=== PATIENT | male | born 1995 | race African-American/Black ===

== ENCOUNTER 2020-05-01 23:05 | Emergency (ER) | payer OTHER ==
[2020-05-01 23:18] VITALS: BP 130/77; PULSE 98; RESP 20; TEMP 98.2
[2020-05-01] MEDS ORDERED: LORazepam 1 MG TAB PO STA (23:59)
--- NOTE | 2020-05-02 00:39 | XR ---
EXAMINATION TYPE: XR chest 2V DATE OF EXAM: 05/02/2020 COMPARISON: NONE HISTORY: Chest pain TECHNIQUE: 2 views FINDINGS: Heart and mediastinum are normal. Lungs are clear. Diaphragm is normal. Bony thorax appears normal. IMPRESSION: Normal chest.
[2020-05-02 00:50] LABS: Amphetamine Screen,Urine Detected (NotDetected); Barbiturate Screen,Urine Not Detected (NotDetected); Benzodiazepines Screen,Urine Not Detected (NotDetected); Cocaine Screen,Urine Not Detected (NotDetected); Methadone Screen, Urine Not Detected (NotDetected); Opiate Screen,Urine Not Detected (NotDetected); Oxycodone Screen, Urine Not Detected (NotDetected); Phencyclidine Screen,Urine Not Detected (NotDetected); Tricyclic Antidepressant,Urine Not Detected (NotDetected); Urn Cannabinoid Scrn Not Detected (NotDetected)
--- NOTE | 2020-05-02 01:03 | ED ---
General Adult HPI - General Chief complaint: Arrhythmia/Palpitations Stated complaint: Palpitations Time Seen by Provider: 05/01/20 23:29 Source: patient Mode of arrival: ambulatory Limitations: no limitations - History of Present Illness Initial comments: 24-year-old male patient presents to the emergency department today for evaluation of palpitations, racing heart, increased anxiety. Patient states symptoms started a few hours ago and have been constant. States he has been having episodes like this with increasing frequency since starting Adderall in December. Patient states he is having some mild left-sided chest pain does not radiate through to his back. Denies any shortness of breath, cough, or congestion. Denies dizziness or weakness. Denies numbness or tingling to his extremities. Patient has not been evaluated by his doctor for this. States he has previously taken Zoloft in the past but didn't feel like it helped him so he stopped taking it. Denies any alcohol or drug use. Patient denies any recent rash, fever, chills, abdominal pain, nausea, vomiting, diarrhea, constipation, back pain, hematuria, dysuria, urinary urgency, urinary frequency, headache, visual changes, or any other complaints. - Related Data Allergies Allergy/AdvReac Type Severity Reaction Status Date / Time No Known Allergies Allergy Verified 05/01/20 23:18 Review of Systems ROS Statement: Those systems with pertinent positive or pertinent negative responses have been documented in the HPI. ROS Other: All systems not noted in ROS Statement are negative. Past Medical History Past Medical History: No Reported History History of Any Multi-Drug Resistant Organisms: None Reported Past Surgical History: No Surgical Hx Reported Past Psychological History: ADD/ADHD Smoking Status: Never smoker Past Alcohol Use History: None Reported Past Drug Use History: None Reported General Exam Limitations: no limitations General appearance: alert, in no apparent distress, other (This is a well- developed, well-nourished adult male patient in no acute distress. Vital signs upon presentation are temperature 98.2F, pulse 98, respirations 20, blood pressure 130/77, pulse ox 98% on room air.) Eye exam: Present: normal appearance, PERRL, EOMI. Absent: scleral icterus, conjunctival injection, periorbital swelling ENT exam: Present: normal exam, normal oropharynx, mucous membranes moist Respiratory exam: Present: normal lung sounds bilaterally. Absent: respiratory distress, wheezes, rales, rhonchi, stridor Cardiovascular Exam: Present: regular rate, normal rhythm, normal heart sounds. Absent: systolic murmur, diastolic murmur, rubs, gallop, clicks GI/Abdominal exam: Present: soft, normal bowel sounds. Absent: distended, tenderness, guarding, rebound, rigid Neurological exam: Present: alert, oriented X3, CN II-XII intact Psychiatric exam: Present: anxious. Absent: homicidal ideation, suicidal ideation Skin exam: Present: warm, dry, intact, normal color. Absent: rash Course Vital Signs 05/01/20 23:14 Temperature 98.2 F Pulse Rate 98 Respiratory 20 Rate Blood Pressure 130/77 O2 Sat by Pulse 98 Oximetry EKG Findings - EKG Comments: EKG Findings:: EKG obtained at 2323 shows normal sinus rhythm with a ventricular rate of 96, ME interval 132, QRS duration 84, QT 350, QTC 442. No evidence of ST elevation or depression. Medical Decision Making - Medical Decision Making 24-year-old male patient presented to the emergency department today for evaluation of racing heart and increased anxiety. Physical examination is unremarkable. Heart sounds are normal. Patient's EKG showed sinus rhythm with a rate in the 90s. Patient states he was having the symptoms during the time of the EKG. Believes his symptoms may be related to starting Adderall in December. Chest x-ray is unremarkable. I did discuss findings and results with the patient and his mother. We did discuss anxiety as a possible cause for his symptoms though he is instructed to follow-up with his primary care physician for further testing and possible Holter monitoring. Return parameters were discussed in detail. He verbalizes understanding and agrees with this plan. Case discussed with my attending Dr. Bowden. - Lab Data Lab Results 05/02/20 Range/Units 00:29 Urine Opiates Screen Not Detected (NotDetected) Ur Oxycodone Screen Not Detected (NotDetected) Urine Methadone Screen Not Detected (NotDetected) Ur Propoxyphene Screen Not Detected (NotDetected) Ur Barbiturates Screen Not Detected (NotDetected) U Tricyclic Antidepress Not Detected (NotDetected) Ur Phencyclidine Scrn Not Detected (NotDetected) Ur Amphetamines Screen Detected H (NotDetected) U Methamphetamines Scrn Not Detected (NotDetected) U Benzodiazepines Scrn Not Detected (NotDetected) Urine Cocaine Screen Not Detected (NotDetected) U Marijuana (THC) Screen Not Detected (NotDetected) - Radiology Data Radiology results: report reviewed, image reviewed Two-view x-ray of the chest is obtained. Report is reviewed in its entirety. Impression by Dr. Kapoor shows normal chest. Disposition Clinical Impression: Palpitations, Anxiety Disposition: HOME SELF-CARE Condition: Good Instructions (If sedation given, give patient instructions): Heart Palpitations (ED), Anxiety (ED) Additional Instructions: Follow-up with her primary care physician for recheck in 1-2 days. Discuss possible heart monitoring and possible medication for anxiety. Return to the emergency department for any new, worsening, or concerning symptoms. Is patient prescribed a controlled substance at d/c from ED?: No Referrals: Arthur Hernandez MD [Primary Care Provider] - 1-2 days Time of Disposition: 01:03
== END 2020-05-02 01:11 | disposition home or self-care (01) ==
LOC: EC 23:05
DX: R00.2 Palpitations (principal); F41.9 Anxiety disorder, unspecified
CPT/HCPCS: 71046; 80306; 93005; 99285

== ENCOUNTER 2020-05-03 12:50 | Emergency (ER) | payer OTHER ==
[2020-05-03 13:00] VITALS: BP 121/69; PULSE 97; RESP 18; TEMP 98.7
[2020-05-03] MEDS ORDERED: LORazepam 1 MG TAB PO STA (13:18)
--- NOTE | 2020-05-03 13:42 | ED ---
General Adult HPI - General Chief complaint: Arrhythmia/Palpitations Stated complaint: revisit - anxiety, palpitations Time Seen by Provider: 05/03/20 13:00 Source: patient, RN notes reviewed, old records reviewed Mode of arrival: ambulatory Limitations: no limitations - History of Present Illness Initial comments: This is a 24-year-old who presents emergency Department stating he is having some anxiety again per patient states she was here yesterday. Patient states he was given some medicine in the ER and that seemed to relax him. Patient states he feels like his chest starts to flutter when he gets anxious. Patient denies any difficulty breathing shortest breath per patient denies any chest chest pain. Patient denies any fever chills or cough. Patient states he has an appointment tomorrow with his primary medical care doctor to get some antianxiety medicine. - Related Data Allergies Allergy/AdvReac Type Severity Reaction Status Date / Time No Known Allergies Allergy Verified 05/03/20 13:00 Review of Systems ROS Statement: Those systems with pertinent positive or pertinent negative responses have been documented in the HPI. ROS Other: All systems not noted in ROS Statement are negative. Past Medical History Past Medical History: No Reported History History of Any Multi-Drug Resistant Organisms: None Reported Past Surgical History: No Surgical Hx Reported Past Psychological History: ADD/ADHD, Anxiety Smoking Status: Never smoker Past Alcohol Use History: None Reported Past Drug Use History: None Reported General Exam - General Exam Comments Initial Comments: GENERAL: Patient is well-developed and well-nourished. Patient is nontoxic and well- hydrated and is in no acute distress. ENT: Neck is soft and supple. No significant lymphadenopathy is noted. Oropharynx is clear. Moist mucous membranes. Neck has full range of motion without eliciting any pain. EYES: The sclera were anicteric and conjunctiva were pink and moist. Extraocular move ments were intact and pupils were equal round and reactive to light. Eyelids were unremarkable. PULMONARY: Unlabored respirations. Good breath sounds bilaterally. CARDIOVASCULAR: There is a regular rate and rhythm ABDOMEN: Soft and nontender with normal bowel sounds. SKIN: Skin is clear with no lesions or rashes and otherwise unremarkable. NEUROLOGIC: Patient is alert and oriented x3. Cranial nerves II through XII are grossly intact. Motor and sensory are also intact. Normal speech, volume and content. Symmetrical smile. MUSCULOSKELETAL: Normal extremities with adequate strength and full range of motion. LYMPHATICS: No significant lymphadenopathy is noted PSYCHIATRIC: Patient is anxious Limitations: no limitations Course Vital Signs 05/03/20 12:58 Temperature 98.7 F Pulse Rate 97 Respiratory 18 Rate Blood Pressure 121/69 O2 Sat by Pulse 99 Oximetry Medical Decision Making - Medical Decision Making Patient was given Ativan in the emergency department. Disposition Clinical Impression: Anxiety Disposition: HOME SELF-CARE Instructions (If sedation given, give patient instructions): Anxiety (ED) Is patient prescribed a controlled substance at d/c from ED?: No Referrals: Arthur Hernandez MD [Primary Care Provider] - 1-2 days Time of Disposition: 13:41
== END 2020-05-03 13:49 | disposition home or self-care (01) ==
LOC: EC 12:50
DX: F41.9 Anxiety disorder, unspecified (principal)
CPT/HCPCS: 99284

== ENCOUNTER 2020-10-16 14:18 | Emergency (ER) | payer OTHER ==
[2020-10-16 14:29] VITALS: BP 122/84; PULSE 98; RESP 20; TEMP 98.3
[2020-10-16] MEDS ORDERED: LORazepam 2 MG/ML INJ IV STA (15:29)
[2020-10-16] MEDS ORDERED: SODIUM CHLORIDE 0.9% 1,000 ML IV ONE (15:29)
[2020-10-16 15:51] LABS: Basophils % (A) 1 %; Eosinophils # (A) 0.2 k/uL (0-0.7); Eosinophils % (A) 2 %; HCT 46.4 % (39.0-53.0); HGB 15.5 gm/dL (13.0-17.5); Lymphocytes # (A) 2.3 k/uL (1.0-4.8); Lymphocytes % (A) 28 %; MCH 30.6 pg (25.0-35.0); MCHC 33.4 g/dL (31.0-37.0); MCV 91.6 fL (80.0-100.0); Mean Platelet Volume 6.8; Monocytes # (A) 0.5 k/uL (0-1.0); Monocytes % (A) 6 %; Neutrophils # (A) 5.1 k/uL (1.3-7.7); Neutrophils % (A) 62 %; Platelet Count 298 k/uL (150-450); RBC 5.07 m/uL (4.30-5.90); RDW 13.1 % (11.5-15.5); WBC 8.2 k/uL (3.8-10.6)
[2020-10-16 16:10] LABS: ALT 12 U/L (4-49); AST 21 U/L (17-59); African American GFR (CKD) >90 (>60 ml/min/1.73 sqM); Albumin 4.7 g/dL (3.5-5.0); Alkaline Phosphatase 59 U/L (38-126); Anion Gap 9 mmol/L; Blood Urea Nitrogen 12 mg/dL (9-20); Calcium 9.6 mg/dL (8.4-10.2); Carbon Dioxide 26 mmol/L (22-30); Chloride 102 mmol/L (98-107); Glucose 118 mg/dL (74-99); Non-African American GFR(CKD) >90 (>60 ml/min/1.73 sqM); Potassium 3.9 mmol/L (3.5-5.1); Sodium 137 mmol/L (137-145); Total Bilirubin 0.3 mg/dL (0.2-1.3); Total Protein 7.2 g/dL (6.3-8.2)
--- NOTE | 2020-10-16 16:48 | ED ---
Arrhythmia/Palpitations HPI - General Chief Complaint: Arrhythmia/Palpitations Stated Complaint: Chest pain Time Seen by Provider: 10/16/20 14:58 Source: patient, RN notes reviewed Mode of arrival: wheelchair Limitations: no limitations - History of Present Illness Initial Comments: 24-year-old male presents emergency Department with chief complaint of palpitations. Patient has a history of this has been placed on propranolol. States symptoms have been more noticeable he does have mild discomfort at times but states it more feels that he is anxious, skipping beats. Patient has not seen cardiology. Patient states he had elevated heart rate noted on his watch up into the 200s. Patient has no current symptoms no other complaints. - Related Data Allergies Allergy/AdvReac Type Severity Reaction Status Date / Time No Known Allergies Allergy Verified 10/16/20 14:29 Review of Systems ROS Statement: Those systems with pertinent positive or pertinent negative responses have been documented in the HPI. ROS Other: All systems not noted in ROS Statement are negative. Past Medical History Past Medical History: No Reported History History of Any Multi-Drug Resistant Organisms: None Reported Past Surgical History: No Surgical Hx Reported Past Psychological History: ADD/ADHD, Anxiety Smoking Status: Never smoker Past Alcohol Use History: None Reported Past Drug Use History: None Reported General Exam Limitations: no limitations General appearance: alert, in no apparent distress Head exam: Present: atraumatic, normocephalic, normal inspection Neck exam: Present: normal inspection. Absent: tenderness, meningismus, lymp hadenopathy Respiratory exam: Present: normal lung sounds bilaterally. Absent: respiratory distress, wheezes, rales, rhonchi, stridor Cardiovascular Exam: Present: regular rate, normal rhythm, normal heart sounds. Absent: systolic murmur, diastolic murmur, rubs, gallop, clicks GI/Abdominal exam: Present: soft, normal bowel sounds. Absent: distended, tenderness, guarding, rebound, rigid Neurological exam: Present: alert, oriented X3, CN II-XII intact Skin exam: Present: warm, dry, intact, normal color. Absent: rash Course Vital Signs 10/16/20 14:25 Temperature 98.3 F Pulse Rate 98 Respiratory 20 Rate Blood Pressure 122/84 O2 Sat by Pulse 99 Oximetry Medical Decision Making - Medical Decision Making EKG and labs unremarkable. Patient discharged in stable condition with follow- up with cardiology return parameters were discussed. - Lab Data Result diagrams: 10/16/20 15:38 10/16/20 15:38 Lab Results 10/16/20 10/16/20 Range/Units 15:38 15:38 WBC 8.2 (3.8-10.6) k/uL RBC 5.07 (4.30-5.90) m/uL Hgb 15.5 (13.0-17.5) gm/dL Hct 46.4 (39.0-53.0) % MCV 91.6 (80.0-100.0) fL MCH 30.6 (25.0-35.0) pg MCHC 33.4 (31.0-37.0) g/dL RDW 13.1 (11.5-15.5) % Plt Count 298 (150-450) k/uL MPV 6.8 Neutrophils % 62 % Lymphocytes % 28 % Monocytes % 6 % Eosinophils % 2 % Basophils % 1 % Neutrophils # 5.1 (1.3-7.7) k/uL Lymphocytes # 2.3 (1.0-4.8) k/uL Monocytes # 0.5 (0-1.0) k/uL Eosinophils # 0.2 (0-0.7) k/uL Basophils # 0.0 (0-0.2) k/uL Sodium 137 (137-145) mmol/L Potassium 3.9 (3.5-5.1) mmol/L Chloride 102 (98-107) mmol/L Carbon Dioxide 26 (22-30) mmol/L Anion Gap 9 mmol/L BUN 12 (9-20) mg/dL Creatinine 0.77 (0.66-1.25) mg/dL Est GFR (CKD-EPI)AfAm >90 (>60 ml/min/1.73 sqM) Est GFR (CKD-EPI)NonAf >90 (>60 ml/min/1.73 sqM) Glucose 118 H (74-99) mg/dL Calcium 9.6 (8.4-10.2) mg/dL Total Bilirubin 0.3 (0.2-1.3) mg/dL AST 21 (17-59) U/L ALT 12 (4-49) U/L Alkaline Phosphatase 59 (38-126) U/L Total Protein 7.2 (6.3-8.2) g/dL Albumin 4.7 (3.5-5.0) g/dL TSH 1.170 (0.465-4.680) mIU/L Disposition Clinical Impression: Palpitations Disposition: HOME SELF-CARE Condition: Stable Instructions (If sedation given, give patient instructions): Heart Palpitations (ED) Additional Instructions: Please return to the Emergency Department if symptoms worsen or any other concerns. Is patient prescribed a controlled substance at d/c from ED?: No Referrals: Arthur Hernandez MD [Primary Care Provider] - 1-2 days Jay Jones MD [STAFF PHYSICIAN] - 1-2 days Time of Disposition: 16:48
== END 2020-10-16 17:15 | disposition home or self-care (01) ==
LOC: EC 14:18
DX: R00.2 Palpitations (principal)
CPT/HCPCS: 36415; 93005; 80053; 84443; 85025; 99285; 96374; 96361; J2060

== ENCOUNTER 2021-01-01 06:14 | Emergency (ER) | payer OTHER ==
[2021-01-01 06:21] VITALS: RESP 18; TEMP 98.7
[2021-01-01] MEDS ORDERED: LORazepam 1 MG TAB PO STA (06:46)
--- NOTE | 2021-01-01 06:49 | ED ---
General Adult HPI - General Chief complaint: Anxiety Stated complaint: Chest Pain Time Seen by Provider: 01/01/21 06:22 Source: patient Mode of arrival: ambulatory - History of Present Illness Initial comments: 25-year-old male presents to the emergency room for palpitations. Patient states he has been getting palpitations on and off for about a year now. Patient states his doctor did put him on propanolol but in no longer seems to be working. Patient states it worsened again this week. Patient questions if it is related to his stress and anxiety as a has been having lately. Patient has an appointment with cardiology on Sunday.Patient has no other complaints at this time including shortness of breath, chest pain, abdominal pain, nausea or vomiting, headache, or visual changes. - Related Data Allergies Allergy/AdvReac Type Severity Reaction Status Date / Time No Known Allergies Allergy Verified 01/01/21 06:21 Review of Systems ROS Statement: Those systems with pertinent positive or pertinent negative responses have been documented in the HPI. ROS Other: All systems not noted in ROS Statement are negative. Past Medical History Past Medical History: No Reported History History of Any Multi-Drug Resistant Organisms: None Reported Past Surgical History: No Surgical Hx Reported Past Psychological History: ADD/ADHD, Anxiety Smoking Status: Never smoker Past Alcohol Use History: None Reported Past Drug Use History: None Reported General Exam General appearance: alert, in no apparent distress Head exam: Present: atraumatic Eye exam: Present: normal appearance, PERRL, EOMI. Absent: scleral icterus, conjunctival injection ENT exam: Present: normal exam, mucous membranes moist Neck exam: Present: normal inspection, full ROM. Absent: tenderness Respiratory exam: Present: normal lung sounds bilaterally. Absent: respiratory distress, wheezes Cardiovascular Exam: Present: regular rate, normal rhythm, normal heart sounds GI/Abdominal exam: Present: soft, normal bowel sounds. Absent: distended, tenderness Neurological exam: Present: alert Psychiatric exam: Present: anxious Course Vital Signs 01/01/21 01/01/21 06:17 07:04 Temperature 98.7 F Pulse Rate 70 69 Respiratory 18 18 Rate Blood Pressure 116/70 O2 Sat by Pulse 99 99 Oximetry EKG Findings - EKG Comments: EKG Findings:: NSR, vent rate 72, pr int 130, qtc 442 Medical Decision Making - Medical Decision Making Vitals are stable. Patient is well appearing. Heart rhythm is regular on exam. Shows a normal sinus rhythm with a ventricular rate of 72. Chest x-ray is unremarkable. Patient has an appointment with cardiology in 2 days. He will continue to take his propanolol until then. He is stable for outpatient follow- up. He will return for any worsening symptoms. Disposition Clinical Impression: Palpitations with regular cardiac rhythm Disposition: HOME SELF-CARE Condition: Good Instructions (If sedation given, give patient instructions): Heart Palpitations (ED) Additional Instructions: Please follow up with primary care in 1-2 days. Follow up with cardiology in 2 days. Return to the emergency room for any worsening symptoms. Is patient prescribed a controlled substance at d/c from ED?: No Referrals: Arthur Hernandez MD [Primary Care Provider] - 1-2 days Time of Disposition: 07:20
--- NOTE | 2021-01-01 07:17 | XR ---
EXAMINATION TYPE: XR chest 2V DATE OF EXAM: 01/01/2021 COMPARISON: Chest x-ray 05/02/2020 HISTORY: Palpitations TECHNIQUE: Frontal and lateral views of the chest are obtained. FINDINGS: There is no focal air space opacity, pleural effusion, or pneumothorax seen. The cardiac silhouette size is within normal limits. The osseous structures are intact. IMPRESSION: No acute cardiopulmonary process.
[2021-01-01 07:34] VITALS: BP 124/76; PULSE 80
== END 2021-01-01 07:34 | disposition home or self-care (01) ==
LOC: EC 06:14
DX: R00.2 Palpitations (principal)
CPT/HCPCS: 71046; 93005; 99285